=== PATIENT | female | born 1965 | race Caucasian/White ===

== ENCOUNTER 2016-10-13 07:40 | Day surgery (SDC) | payer MEDICARE, OTHER ==
[2016-10-10 08:48] VITALS: BMI 17.4
[~2016-10-13 07:40] MED LIST: LACTATED RINGERS 1,000 ML IV SCH
[2016-10-13 08:10] VITALS: TEMP 97.6
[2016-10-13 08:23] LABS: Glucose,Whole Blood 137 mg/dL (75-99)
[2016-10-13] MEDS ORDERED: LIDOCAINE 1% 20 ML VIAL (10MG/ML) FOR IV START INTRADERMA ONE (08:23)
[2016-10-13] MEDS ORDERED: PROPOFOL 10 MG/ML 20 ML VIAL IV ONE (09:13)
--- NOTE | 2016-10-13 09:49 | P.PCN ---
Date of Procedure: 10/13/16 Procedure(s) Performed: Procedure: Colonoscopy and biopsy. Preoperative diagnosis: Diarrhea and question of colitis. Postoperative diagnosis: 1. Diverticulosis with no evidence of acute diverticulitis or strictures. 2. Colon and terminal ileum appeared normal with no evidence of inflammation biopsies obtained. Preparation HalfLytely prep. Sedation was provided by anesthesia. Brief clinical history: The patient is a 50-year-old female who I have seen in the office recently regarding abdominal pains and diarrhea. She has history of irritable bowel syndrome and she has followed with us for some time. A prior colonoscopy with the Dr. Aponte in 2013 raised the possibility of colitis. The patient was in the emergency room around [place] for right-sided abdominal pains and was told that the CT showed colitis. At the time of her visit earlier this month, she was still having pains that come and goes as well as nausea and bloating. She has diarrhea 4-5 times per day and her antispasmodic medications has not been helping. I scheduled this evaluation to assess for inflammatory bowel disease. 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 The patient had constipation predominant irritable bowel syndrome in the past and we have followed her for an enlarging pancreatic head mass with biopsies in April 2013 showing no abnormal cells. The patient has been having follow-up CT and/or endoscopic ultrasound every 6 months at [facility]. She also has family history of colon cancer. Procedure: With the patient on her left lateral decubitus position and after informed consent and adequate sedation, the perianal area was inspected and it did not show any fissures or fistulas. There were no masses felt on digital rectal examination. The Olympus CFQ 160L video colonoscope was then inserted in the rectum in the usual fashion and advanced to the cecum. I intubated the ileocecal valve and examined the terminal ileum. Terminal ileum and colon showed no edema, erythema, friability, ulceration, exudation or spontaneous bleeding. No polyps or tumors were seen. Several small diverticular orifices were seen scattered along the length of the bowel. I obtained biopsies from the terminal ileum and right colon then I retroflexed the endoscope in the rectum before the endoscope was withdrawn. The patient tolerated the procedure well. Plan: The patient was reassured. Will await biopsy results. In the meantime, would continue symptomatic treatment and will try to optimize her therapy for what appears to be at this time diarrhea predominant irritable bowel syndrome. I will keep you updated on her progress.
[2016-10-13 09:52] VITALS: BP 109/68; PULSE 73; RESP 16
== END 2016-10-13 10:14 | disposition home or self-care (01) ==
LOC: ORWHC2ENDO 07:40
DX: K57.30 Diverticulosis of large intestine without perforation or abscess without bleeding (principal); Z80.0 Family history of malignant neoplasm of digestive organs; F17.200 Nicotine dependence, unspecified, uncomplicated; J45.909 Unspecified asthma, uncomplicated; J44.9 Chronic obstructive pulmonary disease, unspecified; E11.9 Type 2 diabetes mellitus without complications; Z79.84 Long term (current) use of oral hypoglycemic drugs; K58.8 Other irritable bowel syndrome; K21.9 Gastro-esophageal reflux disease without esophagitis; Z79.891 Long term (current) use of opiate analgesic; Z79.899 Other long term (current) drug therapy; Z88.0 Allergy status to penicillin
CPT/HCPCS: 81025; 88305; 45380; J2704

== ENCOUNTER → 2017-05-04 | Outpatient (CLI) | payer MEDICARE, OTHER ==
[2017-05-04 17:38] LABS: ALT 46 U/L (9-52); AST 38 U/L (14-36); Alkaline Phosphatase 129 U/L (38-126); Anion Gap 10 mmol/L; Blood Urea Nitrogen 12 mg/dL (7-17); Carbon Dioxide 30 mmol/L (22-30); Chloride 101 mmol/L (98-107); Glucose 206 mg/dL (74-99); Non-African American GFR(MDRD) >60 (>60 ml/min/1.73 sqM); Potassium 5.2 mmol/L (3.5-5.1); Sodium 141 mmol/L (137-145); Total Bilirubin 0.2 mg/dL (0.2-1.3)
[2017-05-05 00:49] LABS: ANA w/Reflex to Titer NEGATIVE (NEGATIVE)
[2017-05-05 02:02] LABS: Iron Saturation 18.87 (12.00-45.00); Iron(FE) 60 ug/dL (50-170); Total Iron Binding Capacity 318 ug/dL (228-460)
== END | disposition home or self-care (01) ==
LOC: LABWHC1 17:01
DX: R74.8 Abnormal levels of other serum enzymes (principal)
CPT/HCPCS: 36415; 80053; 80074; 82728; 83540; 83550; 86038

== ENCOUNTER → 2018-02-26 | Outpatient (CLI) | payer OTHER, MEDICARE ==
--- NOTE | 2018-03-03 11:15 | MM ---
Reason for exam: screening (asymptomatic). Last mammogram was performed 2 years and 9 months ago. History: Patient is postmenopausal and is nulliparous. Family history of breast cancer in grandmother and breast cancer in cousin. Took progesterone beginning at age 39. Physical Findings: A clinical breast exam by your physician is recommended on an annual basis and results should be correlated with mammographic findings. MG Screening Mammo w CAD Bilateral CC and MLO view(s) were taken. Prior study comparison: June 11, 2015, left breast MG 3d work up w/cad LT. June 05, 2015, bilateral MG screening mammo w CAD. The breast tissue is extremely dense which could obscure a lesion on mammography. Benign appearing left calcifications. No suspicious abnormality. No significant changes when compared with prior studies. ASSESSMENT: Benign, BI-RAD 2 RECOMMENDATION: Routine screening mammogram of both breasts in 1 year.
== END | disposition home or self-care (01) ==
LOC: RADMAMWWP 13:11
PROVIDERS: ATTEND Family Medicine
DX: Z12.31 Encounter for screening mammogram for malignant neoplasm of breast (principal)
CPT/HCPCS: 77067

== ENCOUNTER → 2018-08-16 | Outpatient (CLI) | payer OTHER, MEDICARE ==
[2018-08-16 11:33] LABS: Basophils % (A) 1 %; Eosinophils # (A) 0.1 k/uL (0-0.7); Eosinophils % (A) 2 %; HCT 41.2 % (34.0-46.0); HGB 13.2 gm/dL (11.4-16.0); Lymphocytes # (A) 1.7 k/uL (1.0-4.8); Lymphocytes % (A) 25 %; MCH 30.2 pg (25.0-35.0); MCV 94.3 fL (80.0-100.0); Mean Platelet Volume 8.3; Monocytes # (A) 0.4 k/uL (0-1.0); Monocytes % (A) 5 %; Neutrophils # (A) 4.5 k/uL (1.3-7.7); Neutrophils % (A) 65 %; Platelet Count 184 k/uL (150-450); RBC 4.37 m/uL (3.80-5.40); RDW 13.7 % (11.5-15.5); WBC 6.9 k/uL (3.8-10.6)
[2018-08-16 17:21] LABS: Albumin 3.7 g/dL (3.80-4.90); Albumin/Globulin Ratio 1.54 (1.20-2.10); Anion Gap 10.3 mmol/L (4.00-12.00); Calcium 9.4 mg/dL (8.7-10.3); Carbon Dioxide 32.7 mmol/L (21.6-31.8); Globulin 2.4 g/dL (1.6-3.3); LDL Cholesterol,Calculated 27.4 mg/dL (0.0-131.0); Potassium 5.6 mmol/L (3.5-5.5); Total Bilirubin 0.2 mg/dL (0.2-1.2); Total Protein 6.1 g/dL (6.2-8.2); VLDL Calculation 15.6 mg/dL (5.00-40.00)
[2018-08-16 20:58] LABS: Hemoglobin A1C 6.8 % (4.0-6.0)
== END | disposition home or self-care (01) ==
LOC: LABWHC1 10:35
PROVIDERS: ATTEND Family Medicine
DX: E11.9 Type 2 diabetes mellitus without complications (principal); E03.9 Hypothyroidism, unspecified; R94.5 Abnormal results of liver function studies
CPT/HCPCS: 36415; 80053; 80061; 82043; 82570; 83036; 84439; 85025

== ENCOUNTER → 2022-08-15 | Outpatient (CLI) | payer OTHER, MEDICARE ==
--- NOTE | 2022-08-15 13:04 | XR ---
EXAMINATION TYPE: XR ankle complete RT DATE OF EXAM: 08/15/2022 COMPARISON: NONE HISTORY: Pain FINDINGS: Three views of the ankle demonstrate the ankle mortise to be intact and symmetric. The joint spaces are preserved. The osseous structures are intact. There is soft tissue edema. IMPRESSION: 1. No definite acute fracture or dislocation, if symptoms persist consider MRI. 2. Nonspecific soft tissue edema.
== END | disposition home or self-care (01) ==
LOC: RADXRMAIN 12:38
PROVIDERS: ATTEND Family Medicine
DX: M84.371A Stress fracture, right ankle, initial encounter for fracture (principal); R60.0 Localized edema